=== PATIENT | female | born 1930 | race Caucasian/White ===

== ENCOUNTER 2018-01-15 11:10 | Day surgery (SDC) | payer OTHER ==
[~2018-01-15 11:10] MED LIST: ALTACE10 MG PO; CELEXA10 MG PO; CLONAZEPAM0.5 MG PO; NORVASC10 MG PO
== END 2018-01-15 17:20 | disposition home or self-care (01) ==
LOC: CIR.AMB 11:10
DX: S32.018A Other fracture of first lumbar vertebra, initial encounter for closed fracture (principal)